=== PATIENT | female | born 1945 | race Caucasian/White ===

== ENCOUNTER 2020-12-08 14:57 | Outpatient (REF) | payer MEDICARE, OTHER, SELFPAY ==
[2020-12-08 15:56] LABS: Anion Gap 15 (12-20); Blood Urea Nitrogen 24 mg/dL (9-16); C Reactive Protein 0.22 mg/dL (< or = 0.50); Calcium 9.2 mg/dL (8.4-10.2); Carbon Dioxide 21 mmol/L (22-29); Chloride 110 mmol/L (96-108); Estimated Glomerular Filt Rate 31; Glucose Random 139 mg/dL (60-115); Potassium 4.9 mmol/L (3.3-5.1); Rheumatoid Factor < 15.0 IU/mL (<15.0); Sodium 141 mmol/L (135-145)
[2020-12-08 16:16] LABS: Erythrocyte Sedimentation Rate 26 MM/HR (0-20)
[2020-12-10 05:11] LABS: Lyme Abs Screen <0.90 index
[2020-12-12 23:26] LABS: Anti Nuclear Antibody Screen POSITIVE (NEGATIVE)
== END 2020-12-08 14:58 | disposition home or self-care (01) ==
LOC: HO.LAB 14:57
PROVIDERS: PCP Internal Medicine; Visit Provider Psychiatry & Neurology Neurology
DX: R51.9 Headache, unspecified (principal)
CPT/HCPCS: 36415; 80048; 85652; 86038; 86039; 86140; 86431; 86617; 86618

== ENCOUNTER 2020-12-20 07:54 | Outpatient (REF) | payer MEDICARE, OTHER, SELFPAY ==
--- NOTE | ~2020-12-20 | MR_ITS ---
MRI OF THE BRAIN WITH AND WITHOUT IV CONTRAST INDICATION: Chronic daily headache. COMPARISON: None available. TECHNIQUE: Multiplanar multisequence MR imaging of the brain was obtained without and following the administration of 8.5 mL of Gadavist without complication. FINDINGS: There is focal lack of FLAIR CSF suppression within the right central sulcus. There is no susceptibility signal in this location to suggest the presence of acute subarachnoid hemorrhage though a follow-up noncontrast head CT would be helpful in more definitive assessment. This finding could also be explained by focal slow vascular flow remain more proximal arterial stenosis or underlying CSF pathology which can be followed with CSF analysis/lumbar puncture. There is mild to moderate chronic microangiopathy. There is no pathologic intracranial enhancement. There is no hydrocephalus, extra-axial surface collection, or herniation. The major flow voids at the skull base are preserved. There is no acute infarct on diffusion-weighted imaging. There is no intracranial hemorrhage on the gradient recalled echo acquisition. The midline structures are normal. The cerebellar tonsils are normally positioned. The cerebellum and brainstem are normal. The craniocervical junction is normal. Osseous marrow signal intensity is homogenous. The visualized soft tissues are unremarkable. MR/MR head/brain wo/w con IMPRESSION: - There is focal lack of FLAIR CSF suppression within the right central sulcus. There is no susceptibility signal in this location to suggest the presence of acute subarachnoid hemorrhage though a follow-up noncontrast head CT would be helpful in more definitive assessment. This finding could also be explained by focal slow vascular flow remain more proximal arterial stenosis or underlying CSF pathology which can be followed with CSF analysis/lumbar puncture. - No pathologic enhancement intracranially. There is mild to moderate chronic microangiopathy. Covering provider paged with these findings at 7:09 AM on 12/26/2020.
== END 2020-12-20 07:55 | disposition home or self-care (01) ==
LOC: HO.MRI 07:54
PROVIDERS: Visit Provider Psychiatry & Neurology Neurology
DX: R51.9 Headache, unspecified (principal)
CPT/HCPCS: 70553; A9585

== ENCOUNTER 2021-01-10 08:08 | Outpatient (REF) | payer MEDICARE, OTHER, SELFPAY ==
--- NOTE | ~2021-01-10 | CT_ITS ---
EXAMINATION: CT HEAD WITHOUT CONTRAST CLINICAL INFORMATION: Follow-up questioned right central sulcus subarachnoid hemorrhage on previous MRI COMPARISON: Previous brain MRI 12/20/2020 TECHNIQUE: Contiguous axial imaging was performed from the skull base to vertex without intravenous administration of contrast. This CT examination was performed using dose optimization techniques as appropriate, variously including the following: *Automated exposure control *Adjustment of mA and/or kV according to patient size (this includes techniques or standardized protocols for targeted exams where dose is matched to indication/reason for exam; i.e. extremities or head) *Use of iterative reconstruction technique DLP: 805 mGy-cm FINDINGS: There is no evidence of an extra-axial collection. There is no evidence of intra-axial or extra-axial hemorrhage. The ventricles and extra-axial CSF spaces are appropriate. Melgoza-white matter differentiation is normal. No mass, mass effect or infarct is seen. There is evidence of atherosclerotic disease. Bony structures are normal. Paranasal sinuses, mastoid air cells and middle ears are clear. CT/CT head/brain wo con IMPRESSION: Unremarkable exam. No evidence of subarachnoid hemorrhage is seen.
== END 2021-01-10 08:09 | disposition home or self-care (01) ==
LOC: HO.CT 08:08
PROVIDERS: PCP Internal Medicine; Visit Provider Psychiatry & Neurology Neurology
DX: S06.6X9A Traumatic subarachnoid hemorrhage with loss of consciousness of unspecified duration, initial encounter (principal)
CPT/HCPCS: 70450